=== PATIENT | female | born 1980 | race Caucasian/White ===

== ENCOUNTER → 2019-04-06 | Outpatient (CLI) | payer OTHER | LOC: RAD FS 10:25 | PROVIDERS: ATTEND Pediatrics | DX: E83.52 Hypercalcemia (principal); R73.09 Other abnormal glucose | CPT/HCPCS: 36415; 83036; 83970; 84100 ==

== ENCOUNTER → 2019-04-18 | Outpatient (CLI) | payer OTHER ==
--- NOTE | 2019-04-18 16:37 | Diagnostic Imaging Report ---
INDICATION: Elevated calcium levels. TECHNIQUE: Patient was administered 20.4 mCi technetium 99m sestamibi intravenously and 20-minute and 2-hour planar imaging was performed over the neck and upper chest. In addition, SPECT CT was performed. FINDINGS: The 20-minute planar images demonstrate normal physiologic activity within the salivary glands as well as within both lobes of the thyroid gland. 2-hour delayed planar imaging demonstrates clearing of activity from both lobes of the thyroid. No abnormal solitary focus on the delayed planar images is seen. SPECT CT is unremarkable. The soft tissues of the neck and upper chest are unremarkable. IMPRESSION: Unremarkable parathyroid scan with SPECT imaging. There are no findings to suggest parathyroid adenoma. Dictated by: Dictated on workstation # [id number]
== END ==
LOC: CARD 12:06
PROVIDERS: ATTEND Pediatrics
DX: E83.52 Hypercalcemia (principal); E34.9 Endocrine disorder, unspecified
CPT/HCPCS: 78072

== ENCOUNTER → 2019-04-21 | Outpatient (CLI) | payer OTHER | LOC: LAB FS 08:44 | PROVIDERS: ATTEND Pediatrics | DX: E83.52 Hypercalcemia (principal); E34.9 Endocrine disorder, unspecified; R73.09 Other abnormal glucose | CPT/HCPCS: 36415; 84155; 84165 ==

== ENCOUNTER → 2019-08-10 | Outpatient (CLI) | payer OTHER ==
[2019-08-10 15:49] LABS: ALBUMIN 4.3 GM/DL (3.2-4.5); BUN/CREATININE RATIO 12; CALCIUM 10.2 MG/DL (8.5-10.1); CARBON DIOXIDE 19 MMOL/L (21-32); CHLORIDE 108 MMOL/L (98-107); CREATININE SERUM 0.76 MG/DL (0.60-1.30); GFR ESTIMATED > 60; GLUCOSE 100 MG/DL (70-105); PHOSPHORUS 2.6 MG/DL (2.3-4.7); POTASSIUM 4.3 MMOL/L (3.6-5.0); SODIUM 138 MMOL/L (135-145)
[2019-08-10 16:49] LABS: MAGNESIUM 1.9 MG/DL (1.6-2.4)
== END ==
LOC: LAB FS 08-09 08:33
DX: E21.3 Hyperparathyroidism, unspecified (principal); E66.9 Obesity, unspecified; Z68.34 Body mass index [BMI] 34.0-34.9, adult
CPT/HCPCS: 36415; 80069; 82306; 82340; 82570; 83036; 83525; 83735; 83970; 84105; 84439; 84443